=== PATIENT | male | born 1975 | race Caucasian/White ===

== ENCOUNTER 2024-09-30 06:31 | Emergency (ER) | payer OTHER ==
[2024-09-30 06:48] VITALS: BMI 25.7
[2024-09-30] MEDS ORDERED: ACETAMINOPHEN INJECTION 100 ML ONE (07:01)
[2024-09-30] MEDS ORDERED: FAMOTIDINE 20 MG/50 ML IVPB 20 MG/50 ML MG IVPB ONE (07:01)
[2024-09-30] MEDS ORDERED: PANTOPRAZOLE SODIUM 40 MG VIAL ONE (07:12)
[2024-09-30 07:23] LABS: INR 1.04 (0.83-1.09); PROTHROMBIN TIME (PATIENT) 11.4 SEC (9.7-13.0)
[2024-09-30 07:25] LABS: CO2 26.0 mmol/L (21-32)
[2024-09-30] MEDS: PANTOPRAZOLE SODIUM 40 MG VIAL IVPUSH ONE (07:25)
[2024-09-30] MEDS: ACETAMINOPHEN 1000 MG/100 ML BAG IVPB ONE (07:25)
[2024-09-30 07:26] LABS: ACTIVATED PTT 24.9 SECONDS (25.2-36.5); GLUCOSE,RANDOM 125.0 mg/dL (74-106)
[2024-09-30 07:29] LABS: CREATININE 1.4 mg/dL (0.55-1.3); SGOT/AST 26.0 U/L (15-37); SGPT/ALT 46.0 U/L (13-61)
[2024-09-30 07:30] LABS: TOT PROT 7.7 g/dl (6.4-8.2)
[2024-09-30 07:31] LABS: ALK PHOS 85.0 U/L (45-117)
[2024-09-30 07:50] LABS: ABSOLUTE IMMATURE GRANULOCYTES 0.04 x10^3/uL (0.0-0.031); BASOPHILS # 0.03 x10^3/uL (0.01-0.08); EOSINOPHIL % 1.8 % (0.8-7.0); EOSINOPHILS # 0.20 x10^3/uL (0.04-0.54); MCHC 32.4 g/dl (32.3-36.5); MEAN CELL VOLUME 82.4 fl (79.0-92.2); MEAN PLT VOLUME 11.5 fl (9.4-12.4); MONOCYTE # 0.85 x10^3/uL (0.30-0.82); MONOCYTE % 7.7 % (5.3-12.2); RDW 14.6 % (12.1-15.9)
[2024-09-30] MEDS: SODIUM CHLORIDE 0.9% 500 ML INFUS.BAG IV ONE (07:52)
[2024-09-30 07:58] LABS: EPI CELLS 13 /uL (0-25.1); HYALINE CASTS 1 /uL (0-3.1); URINE APPEARANCE CLEAR; URINE BACTERIA 9 /uL (0-1359); URINE BILIRUBIN NEGATIVE (NEGATIVE); URINE COLOR YELLOW; URINE GLUCOSE (UA) NEGATIVE (NEGATIVE); URINE KETONE NEGATIVE (NEGATIVE); URINE LEUK ESTERASE NEGATIVE (NEGATIVE); URINE NITRITE NEGATIVE (NEGATIVE); URINE PROTEIN NEGATIVE (NEGATIVE); URINE RBC 12 /uL (0-23.9); URINE UROBILINOGEN 0.2 mg/dL (0.2-1.0); URINE WBC 10 /uL (0-25.8)
[2024-09-30 11:49] VITALS: BP 139/94; PULSE 74; RESP 18; TEMP 98.9
[2024-09-30 14:56] LABS: HIV INTERPRETATION NEGATIVE (NEGATIVE)
[2024-10-01 20:47] LABS: HCV DIAGNOSTIC IN-HOUSE W/RFLX NON-REACTIVE (NONREACTIVE)
== END 2024-09-30 11:49 | disposition home or self-care (01) ==
LOC: JER 06:31
PROC: 3E033NZ Introduction of Analgesics, Hypnotics, Sedatives into Peripheral Vein, Percutaneous Approach (ICD-10-PCS; principal; 2024-09-30)
PROC: 3E033GC Introduction of Other Therapeutic Substance into Peripheral Vein, Percutaneous Approach (ICD-10-PCS; 2024-09-30)
DX: R10.84 Generalized abdominal pain (principal); K64.4 Residual hemorrhoidal skin tags; K59.00 Constipation, unspecified; K62.5 Hemorrhage of anus and rectum
CPT/HCPCS: 36415; 74019-TC-FY; 74177-TC; 80053; 81003; 82272; 83605; 83735; 85025; 85610; 85730; 86803; 86850; 86900; 86901; 87086; 87389; 93005; 93010; 99285-25; Q9967